=== PATIENT | male | born 1965 | race Caucasian/White ===

== ENCOUNTER → 2021-10-13 | Outpatient (CLI) | payer MEDICARE ==
[~2021-10-13] MED LIST: ATEN25TA; CATHETER FLUSH 10 ML SYR IVP PRN; NAPR-243 PO; TRM50T PO
--- NOTE | 2021-10-13 12:08 | Diagnostic Imaging Report ---
PROCEDURE: CT abdomen and pelvis without contrast. TECHNIQUE: Multiple contiguous axial images were obtained through the abdomen and pelvis without the use of intravenous contrast. Auto Exposure Controls were utilized during the CT exam to meet ALARA standards for radiation dose reduction. INDICATION: Prostate carcinoma. No prior studies are available for comparison. The lung bases are clear. No discrete liver mass is detected. Gallbladder surgically absent. No biliary duct dilatation is seen. Pancreas and spleen are unremarkable. No adrenal mass is identified. Right kidney is unremarkable. There is a 2 to 3 mm nonobstructing calculus in the left kidney. There is no hydronephrosis. Aorta is nonaneurysmal. No central retroperitoneal or mesenteric lymphadenopathy is identified. There is a small fat-containing umbilical hernia. The small and large bowel loops are normal caliber. No obstruction is identified. No free fluid or fluid collection is seen. The bladder is unremarkable. Prostate does appear to be mildly enlarged. No inguinal or iliac lymphadenopathy is seen. Bony structures are nonacute. IMPRESSION: Unremarkable noncontrast CT of the abdomen and pelvis apart from mild prostatomegaly. No abdominal or pelvic lymphadenopathy or evidence of metastatic disease is detected. Note is made of a small nonobstructing left renal calculus. Dictated by: Dictated on workstation # [id number]
--- NOTE | 2021-10-13 15:07 | Diagnostic Imaging Report ---
Indication: Prostate carcinoma. Patient was administered 26.3 mCi technetium 99m MDP intravenously and whole-body imaging was performed after a three-hour delay. No prior bone scans are available for comparison. There is normal uptake of activity by the axial and appendicular skeleton. There is uptake by the kidneys with excretion into the urinary bladder. There is some degenerative uptake involving the medial compartments of bilateral knees as well as some degenerative uptake in bilateral feet. No suspicious foci are identified to suggest osseous metastatic disease. IMPRESSION: No scintigraphic evidence of osseous metastatic disease. Dictated by: Dictated on workstation # [id number]
== END ==
LOC: CARD 12:00
PROVIDERS: ATTEND Urology
DX: C61 Malignant neoplasm of prostate (principal); N20.0 Calculus of kidney
CPT/HCPCS: 74176; 78306; A9503

== ENCOUNTER 2021-11-07 12:35 | Outpatient (RCR) | payer MEDICARE ==
[~2021-11-07 12:35] MED LIST changes: -CATHETER FLUSH 10 ML SYR IVP PRN
== END 2021-11-12 | disposition home or self-care (01) ==
LOC: ONC 12:35
PROVIDERS: ATTEND Radiology Radiation Oncology
DX: C61 Malignant neoplasm of prostate (principal); I10 Essential (primary) hypertension; E66.9 Obesity, unspecified
CPT/HCPCS: 76873; 99204

== ENCOUNTER → 2021-11-30 | Outpatient (CLI) | payer MEDICARE | END | disposition home or self-care (01) | LOC: PREOP 05:37 | PROVIDERS: ATTEND Urology | DX: Z01.818 Encounter for other preprocedural examination (principal) ==

== ENCOUNTER 2022-01-24 05:32 | Outpatient (CLI) | payer MEDICARE ==
[~2022-01-24] VITALS: Ht 172.7 cm; Wt 165.0 kg
[2022-01-25] MEDS ORDERED: CETI10TA17 PO (13:00)
[2022-01-25] MEDS ORDERED: TMSL.4C PO (13:00)
== END 2022-01-25 13:10 | disposition home or self-care (01) ==
LOC: PREOP 05:32
PROVIDERS: ATTEND Urology
DX: Z01.818 Encounter for other preprocedural examination (principal)

== ENCOUNTER 2022-01-31 10:10 | Day surgery (SDC) | payer MEDICARE ==
[2022-01-31] VITALS (11 sets, daily range): BP systolic 115–143; BP diastolic 58–98
[~2022-01-31] VITALS: Ht 172.7 cm; Wt 165.0 kg
[~2022-01-31 10:10] MED LIST changes: +CETI10TA17 PO; +TMSL.4C PO
[2022-01-31] MEDS ORDERED: fentaNYL INJ 100 MCG/2 ML AMP ONE (10:19)
[2022-01-31] MEDS ORDERED: BACITRACIN OINTMENT 28 GM TUBE ONE (10:23)
--- NOTE | 2022-01-31 10:31 | Progress Note-Pre Operative ---
Pre-Operative Progress Note Date of Available H&P: Jan 31, 2022 Date H&P Reviewed: Jan 31, 2022 Time H&P Reviewed: 10:31 Changes from last HP NONE Pre-Operative Diagnosis: CA PROSTATE RENEA SCANLON MD Jan 31, 2022 10:31
--- NOTE | 2022-01-31 10:33 | Progress Note-Post Operative ---
Post-Operative Progess Note Surgeon (s)/Assistant Chief Nursing Officer (s) Surgeon VERO HENRIQUEZ MD, RENEA SCANLON MD Assistant Chief Nursing Officer: NONE Pre-Operative Diagnosis CA PROSTATE Post-Operative Diagnosis SAME Procedure & Operative Findings Date of Procedure 01/31/22 Procedure Performed/Findings BRACHYTHERAPY, SPACE OAR, AND CYSTOGRAM Anesthesia Type GENERAL Estimated Blood Loss Estimated blood loss (mL): NEGLIGIBLE Specimens/Packing Specimens Removed NONE Packing: NONE RENEA SCANLON MD Jan 31, 2022 10:33
--- NOTE | 2022-01-31 10:35 | Discharge Inst-Urology ---
Discharge Inst-Urology Reconcile Patient Problems Problems Reviewed?: Yes Final Diagnosis CA PROSTATE Patient Instructions/Follow Up Plan/Assessment/Instructions Discharge with Valdivia and leg bag day time and lrge bag night time with instructions patient to come to office saturday 9am to LEA Valdiv[facility] Please make appointment to been seen in office by me in 2 weeks. Keep bowels soft and moving Increase oral fluids for 48 hours and then as needed. Diet and Activity as tolerated. If questions or concerns contact your physician Or seek help at emergency department. RENEA SCANLON MD Jan 31, 2022 10:35
[2022-01-31] MEDS ORDERED: LIDOCAINE PF 2% 5 ML (XYLOCAINE) VIAL ONE (10:36)
[2022-01-31] MEDS ORDERED: proPOfol 200 MG/20 ML (DIPRIVAN) VIAL IV ONE ×2 (10:36→12:23)
[2022-01-31] MEDS: LACTATED RINGERS 1,000 ML IV PRN ×2 (10:50→12:30)
[2022-01-31] MEDS ORDERED: MIDAZOLAM 2 MG/2 ML (VERSED) VIAL ONE ×2 (11:21→12:55)
[2022-01-31] MEDS ORDERED: BACITRACIN OINTMENT 28 GM TUBE TOP ONE (12:09)
[2022-01-31] MEDS ORDERED: SEVOFLURANE (ULTANE) 15 ML INHAL SOLN ONE (12:19)
[2022-01-31] MEDS ORDERED: ONDANSETRON 4 MG/2 ML (SDV) Z0FRAN ONE (12:19)
[2022-01-31] MEDS ORDERED: ROCURONIUM 10 MG/ML 5 ML SYRINGE IV ONE (12:20)
[2022-01-31] MEDS ORDERED: NEOSTIGMINE (BLOXIVERZ ) 1 MG/1ML 10 ML VIAL ONE (12:20)
[2022-01-31] MEDS ORDERED: GLYCOPYRROLATE 0.2 MG/ML (ROBINUL) 2 ML VIAL ONE ×2 (12:20→12:23)
[2022-01-31] MEDS ORDERED: IOPAMIDOL 61% 30 ML (ISOVUE 300) VIAL URETERAL ONE (12:30)
--- NOTE | 2022-01-31 13:08 | Anesthesia-General Post-Op ---
General Patient Condition Mental Status/LOC: Same as Preop Cardiovascular: Satisfactory Nausea/Vomiting: Absent Respiratory: Satisfactory Pain: Controlled Complications: Absent Post Op Complications Complications None Follow Up Care/Instructions Patient Instructions None needed. Anesthesia/Patient Condition Patient Condition Patient is doing well, no complaints, stable vital signs, no apparent adverse anesthesia problems. No complications reported per nursing. GUERRERO OCONNOR CRNA Jan 31, 2022 13:08
[2022-01-31] MEDS ORDERED: MIDAZOLAM 2 MG/2 ML (VERSED) VIAL IVP ONE (13:15)
[2022-01-31] MEDS ORDERED: ONDANSETRON 4 MG/2 ML (SDV) Z0FRAN IVP PRN (13:15)
[2022-01-31] MEDS ORDERED: fentaNYL INJ 100 MCG/2 ML AMP IVP ONE (13:15)
[2022-01-31] MEDS ORDERED: KETO10TA PO (14:09)
[2022-01-31] MEDS ORDERED: CIPR-225 PO (14:09)
--- NOTE | 2022-01-31 17:03 | Diagnostic Imaging Report ---
INDICATION: Brachytherapy for prostate COMPARISON: None available. IMPRESSION: Single spot image shows radiation seeds tract within the prostate. Air Kerma is 11.15 mGy. Please see procedure report for more details. Dictated by: Dictated on workstation # [id number]
== END 2022-01-31 14:50 | disposition home or self-care (01) ==
LOC: SDC 10:10
PROVIDERS: ATTEND Urology
DX: C61 Malignant neoplasm of prostate (principal); G47.33 Obstructive sleep apnea (adult) (pediatric); Z79.899 Other long term (current) drug therapy
CPT/HCPCS: 55874; 76000; 76965; 77290; 77318; 77332; 77370; 77470; 77778; 87081; C1715 ×2; C1889; C2643

== ENCOUNTER 2022-02-28 09:32 | Outpatient (RCR) | payer MEDICARE ==
[~2022-02-28 09:32] MED LIST changes: +CIPR-225 PO; +KETO10TA PO
== END 2022-03-14 | disposition home or self-care (01) ==
LOC: ONC 09:32
PROVIDERS: ATTEND Radiology Radiation Oncology
DX: C61 Malignant neoplasm of prostate (principal); I10 Essential (primary) hypertension; E66.9 Obesity, unspecified; Z51.0 Encounter for antineoplastic radiation therapy
CPT/HCPCS: 77290; 77295

== ENCOUNTER 2022-08-23 11:32 | Outpatient (RCR) | payer MEDICARE | END 2022-09-12 | disposition home or self-care (01) | LOC: ONC 11:32 | PROVIDERS: ATTEND Radiology Radiation Oncology | DX: C61 Malignant neoplasm of prostate (principal); I10 Essential (primary) hypertension; E66.01 Morbid (severe) obesity due to excess calories | CPT/HCPCS: 84153; G0463; 36415; 99213 ==